=== PATIENT | female | born 1970 | race Caucasian/White ===

== ENCOUNTER 2018-05-02 17:00 | Emergency (ER) | payer SELFPAY ==
--- NOTE | 2018-05-02 18:50 | NUR ---
CALLED TWICE AT THE LOBBY NO ANSWER LWBS
== END 2018-05-02 18:50 | disposition left against medical advice (07) ==
LOC: MED 17:00
DX: Z53.21 Procedure and treatment not carried out due to patient leaving prior to being seen by health care provider (principal)

== ENCOUNTER 2018-05-03 06:10 | Emergency (ER) | payer OTHER ==
[~2018-05-03] VITALS: Ht 170.2 cm; Wt 122.5 kg
--- NOTE | 2018-05-03 06:17 | NUR ---
PT TAKEN TO BED 5
--- NOTE | 2018-05-03 06:17 | NUR ---
PT PRESENTS TO ED WITH DIZZINESS X1 DAY. DENIES BLURRED VISION, ALOC, VOMITING. STATES NAUSEA. DIZZINESS OCCURES WITH POSITION CHANGE FROM STANDING TO LAYING OR LAYING TO STANDING. HX PRE-DMII, HTN, HYPOTHYROIDISM. A&OX4. STRONG GAIT. PT CAME IN [place] AT 112 AND BP OF 138/81. POSITIONED IN BED WITH HOB ELEVATED. SIDE RAILS UP. ER MD AWARE. CONTINUE TO MONITOR.
[2018-05-03 06:20] VITALS: BP 168/92
--- NOTE | 2018-05-03 06:34 | NUR ---
Dr. Waldrop evaluating patient at bedside.
[2018-05-03] MEDS ORDERED: NACL 0.9% 1,000 ML IV ONE (06:35)
[2018-05-03] MEDS ORDERED: ONDANSETRON 4 MG/2 ML VIAL IVP ONE (06:35)
[2018-05-03 07:16] LABS: BASOPHILS # (AUTO) 0.1 K/uL (0.00-0.22); BASOPHILS % (AUTO) 0.4 % (0.0-2.0); EOSINOPHILS % (AUTO) 0.3 % (0.0-4.0); HEMATOCRIT 39.6 % (36-48); HEMOGLOBIN 12.7 g/dL (12.0-16.0); LYMPHOCYTES % (AUTO) 20.7 % (20.5-51.1); MEAN CORPUSCULAR HEMOGLOBIN 26 pg (27-31); MEAN CORPUSCULAR HGB CONC 32 g/dL (33-37); MEAN CORPUSCULAR VOLUME 81.9 fL (80-94); MONOCYTES # (AUTO) 1.1 K/uL (0.8-1.0); MONOCYTES % (AUTO) 7.5 % (1.7-9.3); NEUTROPHILS # (AUTO) 10.3 K/uL (1.8-7.7); NEUTROPHILS % (AUTO) 71.1 % (42.2-75.2); PLATELET COUNT (AUTO) 297 K/uL (140-450); RED BLOOD CELL COUNT(AUTO) 4.83 MIL/uL (4.20-5.40); RED CELL DISTRIBUTION WIDTH 14.8 % (11.6-13.7); WHITE BLOOD COUNT (AUTO) 14.5 K/uL (4.8-10.8)
--- NOTE | 2018-05-03 07:22 | NUR ---
PT. RESTING COMFORTABLY IN BED, RR EVEN AND UNLABORED. VSS. FAMILY MEMBER AT BEDSIDE. WILL CONTINUE TO MONITOR.
[2018-05-03 07:56] LABS: ANION GAP 11.9 (8-16); CARBON DIOXIDE 27.9 mmol/L (21-32); CREATININE 0.8 mg/dL (0.6-1.3); POTASSIUM 3.8 mmol/L (3.5-5.1)
[2018-05-03 08:06] LABS: ALBUMIN 3.6 g/dL (3.4-5.0); FREE T4 (FREE THYROXINE) 1.29 ng/dL (0.76-1.46); TOTAL BILIRUBIN 0.3 mg/dL (0.0-1.0)
--- NOTE | 2018-05-03 08:35 | NUR ---
PT. AMBULATED TO RESTROOM WITH STEADY GAIT AND DENIES ANY DIZZYNESS AT THIS TIME. WILL CONTINUE TO MONITOR.
[2018-05-03 08:44] LABS: BILIRUBIN,URINE NEGATIVE (NEGATIVE); BLOOD, URINE NEGATIVE (NEGATIVE); COLOR,URINE YELLOW (YELLOW); LEUKOCYTE ESTERASE ,URINE NEGATIVE (NEGATIVE); NITRITE, URINE NEGATIVE (NEGATIVE); PH,URINE 5.5 (5.0-9.0); UGLUCOSE NEGATIVE (NEGATIVE)
[2018-05-03 08:47] LABS: APPEARANCE,URINE CLEAR (CLEAR)
[2018-05-03 08:48] VITALS: BP 131/62
--- NOTE | 2018-05-03 08:48 | NUR ---
Patient discharged with v/s stable. Written and verbal after care instructions given and explained. Patient alert, oriented and verbalized understanding of instructions. Ambulatory with steady gait. All questions addressed prior to discharge. ID band removed. Patient advised to follow up with PMD. Rx of ZOFRAN 4MG ODT given. Patient educated on indication of medication including possible reaction and side effects. Opportunity to ask questions provided and answered.
== END 2018-05-03 08:48 | disposition home or self-care (01) ==
LOC: MED 06:10
DX: R42 Dizziness and giddiness (principal); R11.0 Nausea; E11.9 Type 2 diabetes mellitus without complications; Z88.1 Allergy status to other antibiotic agents
CPT/HCPCS: 36415; 80053; 81003; 81025; 84439; 84443; 85025; 93005; 96361; 96374; 99284; J2405; J7030; 81002

== ENCOUNTER 2018-10-11 17:05 | Emergency (ER) | payer OTHER ==
[~2018-10-11] VITALS: Ht 170.2 cm; Wt 113.4 kg
[2018-10-11 17:16] VITALS: BP 110/63
--- NOTE | 2018-10-11 17:24 | NUR ---
Patient ambulated to bed 11. RN evaluating patient at bedside.
--- NOTE | 2018-10-11 17:29 | NUR ---
Dr. Lucia evaluating patient at bedside.
--- NOTE | 2018-10-11 17:30 | NUR ---
PT BIB SELF C/O WEAKNESS AND NUMBNESS IN RT HAND AFTER SPRAYING LYSOL ON HER HAND AND THEN SMELLING IT. VSS. ER TO SEE PT.
[2018-10-11 17:41] VITALS: BP 110/63
--- NOTE | 2018-10-11 17:41 | NUR ---
Patient discharged with v/s stable. Written and verbal after care instructions given and explained. Patient verbalized understanding. Ambulatory with steady gait. All questions addressed prior to discharge. Advised to follow up with PMD.
== END 2018-10-11 17:41 | disposition home or self-care (01) ==
LOC: MED 17:05
DX: L25.3 Unspecified contact dermatitis due to other chemical products (principal); E11.9 Type 2 diabetes mellitus without complications; I10 Essential (primary) hypertension; E07.9 Disorder of thyroid, unspecified; Z88.1 Allergy status to other antibiotic agents
CPT/HCPCS: 99281